=== PATIENT | male | born 1970 | race Caucasian/White ===

== ENCOUNTER 2017-09-29 06:36 | Day surgery (SDC) | payer BC ==
[~2017-09-29 06:36] MED LIST: Lactated Ringers 1,000 ML IV SCH; Lidocaine 1%/Sod Bicarbonate in NS 8.4% 1 ML Syringe IDERM PRN; Sodium Chloride 0.9% 10 ML Syringe FLUSH PRN
[2017-09-29] MEDS ORDERED: Lactated Ringers 1,000 ML ONE (06:55)
[2017-09-29] MEDS ORDERED: ceFAZolin 1 GM Vial ONE (06:55)
[2017-09-29] MEDS ORDERED: Ondansetron 4 MG/2 ML SDV ONE (06:55)
[2017-09-29] MEDS ORDERED: Midazolam 1 MG/ML 2 ML SDV ONE (06:55)
[2017-09-29] MEDS ORDERED: Propofol 200 MG/20 ML SDV ONE (06:55)
[2017-09-29] MEDS ORDERED: fentaNYL 250 MCG/5 ML SDV ONE (06:56)
[2017-09-29] MEDS ORDERED: Lidocaine 1% 4 ML ONE (06:57)
[2017-09-29] MEDS ORDERED: Dexamethasone 4 MG/ML 5 ML MDV ONE (06:59)
--- NOTE | 2017-09-29 07:04 | PCM.PREANE ---
Preanesthetic Assessment - Anesthesia/Transfusion/Family Hx Anesthesia History: Prior Anesthesia Without Reaction Family History of Anesthesia Reaction: No Transfusion History: No Prior Transfusion(s) - Review of Systems General: No Symptoms Pulmonary: No Symptoms Cardiovascular: No Symptoms Gastrointestinal: No Symptoms Neurological: Headache (Dull headache this morning. ) Other: Reports: None - Physical Assessment NPO Status Date: 09/28/17 NPO Status Time: 21:00 Pulse: 74 O2 Sat by Pulse Oximetry: 97 Respiratory Rate: 16 Blood Pressure: 135/87 Temperature: 36.1 C Weight: 103 kg ASA Class: 2 Mental Status: Alert & Oriented x3 Dentition: Reports: Normal Dentition Thyro-Mental Finger Breadths: 3 Mouth Opening Finger Breadths: 3 ROM/Head Extension: Full Lungs: Clear to Auscultation, Normal Respiratory Effort Cardiovascular: Regular Rate, Regular Rhythm - Allergies Allergies/Adverse Reactions: Allergies Allergy/AdvReac Type Severity Reaction Status Date / Time ciprofloxacin [From Cipro] Allergy Cannot Verified 09/28/17 14:37 Remember - Acknowledgements Anesthesia Type Planned: General Anesthesia Pt an Appropriate Candidate for the Planned Anesthesia: Yes Alternatives and Risks of Anesthesia Discussed w Pt/Guardian: Yes Pt/Guardian Understands and Agrees with Anesthesia Plan: Yes PreAnesthesia Questionnaire Cardiovascular History: Reports: None Respiratory History: Reports: None Gastrointestinal History: Reports: None Genitourinary History: Reports: Other (See Below) Other Genitourinary History: prostatatis [employer]ER History: Reports: None Musculoskeletal History: Reports: Other (See Below) Other Musculoskeletal History: left foot calcaneal spur, deragnement of lateral meniscus of right knee Neurological History: Reports: None Psychiatric History: Reports: None Endocrine/Metabolic History: Reports: Obesity/BMI 30+ Hematologic History: Reports: None Immunologic History: Reports: None Oncologic (Cancer) History: Reports: None Dermatologic History: Reports: None - Past Surgical History Head Surgeries/Procedures: Reports: None HEENT Surgical History: Reports: Oral Surgery Cardiovascular Surgical History: Reports: None Respiratory Surgical History: Reports: None GI Surgical History: Reports: None Female Surgical History: Reports: None Male Surgical History: Reports: None Endocrine Surgical History: Reports: None Neurological Surgical History: Reports: None Musculoskeletal Surgical History: Reports: Other (See Below) Other Musculoskeletal Surgeries/Procedures:: left meniscus tear with repair Oncologic Surgical History: Reports: None Dermatological Surgical History: Reports: None - SUBSTANCE USE Smoking Status *Q: Never Smoker Recreational Drug Use History: No - HOME MEDS Home Medications: Home Meds Acetaminophen [Tylenol Extra Strength] 1,000 mg PO DAILY 09/28/17 [History] Ascorbic Acid [Vitamin C] 1,000 mg PO DAILY 09/28/17 [History] Lysine 500 mg PO DAILY 09/28/17 [History] Acetaminophen/HYDROcodone [Worley 325-5 MG] 1 - 2 tab PO Q6H PRN #30 tablet 09/29 [Rx] Aspirin 325 mg PO BID #84 tab 09/29/17 [Rx] - CURRENT (IN HOUSE) MEDS Current Meds: Current Medications Lactated Ringer's (Ringers, Lactated) 1,000 mls @ 125 mls/hr IV ASDIRECTED DARLING Stop: 09/29/17 23:00 Lidocaine/Sodium Bicarbonate (Buffered Lidocaine 1% In Ns 8.4%) 0.25 ml IDERM ONETIME PRN PRN Reason: Prior to IV Start Stop: 09/29/17 18:00 Sodium Chloride (Saline Flush) 10 ml FLUSH ASDIRECTED PRN PRN Reason: Keep Vein Open Stop: 09/29/17 18:00 Discontinued Medications Cefazolin Sodium (Ancef) Confirm Administered Dose 2 gm .ROUTE .STK-MED ONE Stop: 09/29/17 06:56 Dexamethasone (Dexamethasone) Confirm Administered Dose 20 mg .ROUTE .STK-MED ONE Stop: 09/29/17 07:00 Fentanyl (Sublimaze) Confirm Administered Dose 250 mcg .ROUTE .STK-MED ONE Stop: 09/29/17 06:57 Lactated Ringer's (Ringers, Lactated) Confirm Administered Dose 1,000 mls @ as directed .ROUTE .STK-MED ONE Stop: 09/29/17 06:56 Lidocaine HCl (Xylocaine-Mpf 1%) Confirm Administered Dose 4 mls @ as directed .ROUTE .STK-MED ONE Stop: 09/29/17 06:58 Midazolam HCl (Versed 1 Mg/Ml) Confirm Administered Dose 2 mg .ROUTE .STK-MED ONE Stop: 09/29/17 06:56 Ondansetron HCl (Zofran) Confirm Administered Dose 4 mg .ROUTE .STK-MED ONE Stop: 09/29/17 06:56 Propofol (Diprivan 20 Ml) Confirm Administered Dose 400 mg .ROUTE .[facility] ONE Stop: 09/29/17 06:56
[2017-09-29] MEDS ORDERED: Triamcinolone Acetonide 40 MG/ML 1 ML MDV ONE (07:25)
[2017-09-29] MEDS ORDERED: EPINEPHrine 1 MG/ML 30 ML MDV ONE (07:30)
[2017-09-29] MEDS ORDERED: Ketorolac 30 MG/ML SDV ONE (07:54)
[2017-09-29] MEDS ORDERED: Haloperidol Lactate 5 MG/ML SDV IVPUSH PRN (08:02)
[2017-09-29] MEDS ORDERED: HYDROmorphone 0.5 MG/0.5 ML Syringe IVPUSH PRN (08:02)
[2017-09-29] MEDS ORDERED: fentaNYL 100 MCG/2 ML SDV IVPUSH PRN (08:02)
[2017-09-29] MEDS: Bupivacaine 0.25% 10 ML SDV ONE ×2 (08:15→08:18)
--- NOTE | 2017-09-29 08:35 | PCM.POSTAN ---
POST ANESTHESIA ASSESSMENT - MENTAL STATUS Mental Status: Alert, Oriented - VITAL SIGNS Pulse Rate: 95 SaO2: 96 Resp Rate: 12 Blood Pressure: 126/88 Temperature: 36.6 C - RESPIRATORY Respiratory Status: Respiratory Rate WNL, Airway Patent, O2 Saturation Stable, Supplemental Oxygen - CARDIOVASCULAR CV Status: Pulse Rate WNL, Blood Pressure Stable - GASTROINTESTINAL GI Status: No Symptoms - PAIN Pain Score: 0 - POST OP HYDRATION Hydration Status: Adequate & Stable
[2017-09-29] MEDS ORDERED: Acetaminophen/HYDROcodone 325-5 MG Tab PO PRN (08:59)
--- NOTE | 2017-09-29 11:34 | PCM48HPAN ---
Post Anesthesia Note - EVALUATION WITHIN 48HRS OF ANESTHETIC Vital Signs in Normal Range: Yes Patient Participated in Evaluation: Yes Respiratory Function Stable: Yes Airway Patent: Yes Cardiovascular Function Stable: Yes Hydration Status Stable: Yes Pain Control Satisfactory: Yes Nausea and Vomiting Control Satisfactory: Yes Mental Status Recovered: Yes Pulse Rate: 95 Resp Rate: 14 Temperature: 36.6 C Blood Pressure: 126/88
--- NOTE | 2017-10-09 22:05 | PCM.OPNOTE ---
- General Post-Op/Procedure Note Date of Surgery/Procedure: 09/29/17 Operative Procedure(s): right knee video arthroscopy with partial lateral meniscectomy and left knee corticosteroid injection Pre Op Diagnosis: right knee lateral meniscus tear and left knee osteoarthrosis Post-Op Diagnosis: Same Anesthesia Technique: General LMA, Local Primary Surgeon: Man Johnston Anesthesia Provider: Ernestine Villa Etched Circuit Processor: Chen Bell EBL in mLs: 5 Condition: Good
--- NOTE | 2017-10-10 09:01 | OR ---
DATE OF OPERATION: 09/29/2017 SURGEON: Man Johnston MD OPERATION PERFORMED: Right knee video arthroscopy with partial lateral meniscectomy and left knee corticosteroid injection. PREOPERATIVE DIAGNOSIS: 1. Right knee lateral meniscus tear. 2. Left knee osteoarthrosis. POSTOPERATIVE DIAGNOSIS: 1. Right knee lateral meniscus tear. 2. Left knee osteoarthrosis. ANESTHESIA: General LMA with local. ANESTHESIA PROVIDER: Melissa Villa CRNA TERMINAL BLOCK ASSEMBLER: Chen Bell PA-C. ESTIMATED BLOOD LOSS: Less than 5 mL. COMPLICATIONS: None. CONDITION: Stable. DESCRIPTION OF PROCEDURE: The patient was identified in the preoperative holding area. Proper site was marked and identified by the surgeon. The patient was taken back to the operating theater where after adequate anesthesia, the patient's right lower extremity was placed in a C-clamp sheth. After a nonsterile tourniquet was applied, the left lower extremity was placed in a well leg sheth. Right lower extremity was then sterilely prepped and draped in the usual sterile fashion. OR time-out was performed. The patient received 2 g IV Ancef. At this time, the right lower extremity was exsanguinated. Tourniquet was insufflated to 250 mmHg. Standard anterolateral portal incision was made and scope trocar was introduced. At this time, there was no significant other than grade 1 chondromalacia changes of the patellofemoral joint. There were no loose foreign bodies in the medial or lateral gutters. Attention was turned to the medial compartment. With use of a spinal needle, anterior medial portal was created. Scope trocar was introduced. Medial meniscus showed no signs of medial meniscal tear. There were no significant chondromalacia changes in the medial compartment. At this time, the ACL was intact in the notch. Lateral compartment showed grade 1/2 chondromalacia changes. There was noted to be a tear of the posterior horn of the lateral meniscus. It was found to be unstable tear. At this time, the posterior third of the lateral meniscus was removed with partial lateral meniscectomy. At this time, the rest was found to be stable. Excess saline was drained from the knee. A 3-0 nylon simple suture was used for closure of the skin. At this time, under sterile technique, 2 mL of 40 mg Kenalog and 4 mL of 0.25% Marcaine was injected intra-articularly to the left knee. The patient tolerated that as well and was sent to the PACU in stable condition. JANIS /[id number]
== END 2017-09-29 10:00 | disposition home or self-care (01) ==
LOC: JD.SDS 06:36
PROVIDERS: ATTEND Orthopaedic Surgery
DX: M23.251 Derangement of posterior horn of lateral meniscus due to old tear or injury, right knee (principal); M17.12 Unilateral primary osteoarthritis, left knee; E66.9 Obesity, unspecified; Z68.34 Body mass index [BMI] 34.0-34.9, adult; Z98.890 Other specified postprocedural states; Z79.899 Other long term (current) drug therapy
CPT/HCPCS: 20610; 29881; 87641; A9270; J0171; J0690; J1100; J1885; J2250; J2405; J3010; J3301; J7120; 01400; J2001; J2704